=== PATIENT | female | born 1950 ===

== ENCOUNTER 2018-04-24 11:02 | Emergency (ER) | payer OTHER ==
[2018-04-24 11:16] VITALS: BMI 34.5
--- NOTE | 2018-04-24 11:21 | C.PDOC ---
History Of Present Illness 68 year old female, whose past medical history includes chronic knee pain and chronic varicose veins, presents to the ED for evaluation of pain behind her left knee, to the popliteal fossa. Patient states she undergone an operation to her right knee and is pending the same for her left knee. She reports pain and tightness to her calf, around where she has varicose veins, and burning sensation to her feet. She has followed up with her doctor and takes pain medication. She denies fever, chills, nausea, and vomiting. Time Seen by Provider: 04/24/18 11:12 Chief Complaint (Nursing): Lower Extremity Problem/Injury History Per: Patient History/Exam Limitations: no limitations Onset/Duration Of Symptoms: Days Current Symptoms Are (Timing): Still Present Past Medical History Reviewed: Historical Data, Nursing Documentation, Vital Signs - Medical History PMH: No Chronic Diseases Surgical History: No Surg Hx Family History: States: Unknown Family Hx Review Of Systems Constitutional: Negative for: Fever, Chills Gastrointestinal: Negative for: Nausea, Vomiting Musculoskeletal: Positive for: Other (left knee pain ) Physical Exam - Physical Exam Appears: Non-toxic, No Acute Distress Skin: Normal Color, Warm, Dry Head: Atraumatic, Normacephalic Eye(s): bilateral: Normal Inspection Oral Mucosa: Moist Neck: Supple Chest: Symmetrical, No Deformity, No Tenderness Cardiovascular: Rhythm Regular, No Murmur Respiratory: Normal Breath Sounds, No Rales, No Rhonchi, No Wheezing Gastrointestinal/Abdominal: Soft, No Tenderness, No Guarding, No Rebound, Other (obese) Extremity: Tenderness (mild, to varicose veins and popliteal fossa of left knee ), Capillary Refill (less than 2 seconds ), No Other (laxity, ecchymosis, swelling or bleeding to left knee ) Neurological/Psych: Oriented x3, Normal Speech, Normal Cognition, Normal Motor, Normal Sensation Gait: Steady ED Course And Treatment O2 Sat by Pulse Oximetry: 98 (on RA) Pulse Ox Interpretation: Normal Medical Decision Making Medical Decision Making: Progress: On reassessment, patient is resting comfortably, showing no signs of distress and is stable for discharge. Patient is recommended to use compression stockings and to follow up with her PMD within 1-2 days for further evaluation. Disposition Discussed With Dr.: buckley Counseled Patient/Family Regarding: Diagnosis, Need For Followup, Rx Given - Disposition Referrals: Priscilla Calero MD [Staff Provider] - Disposition: HOME/ ROUTINE Disposition Time: 11:32 Condition: STABLE Prescriptions: Compr.stocking,Thigh,Reg,Large [Compression Thigh Stocking] 1 each MC DAILY #2 each Instructions: Varicose Veins (DC) Forms: [employer] (Wolof) - POA Present On Arrival: None - Clinical Impression Clinical Impression: Varicose vein of leg - Scribe Statement The provider has reviewed the documentation as recorded by the Scribe (Pauline Espinal) Provider Attestation: All medical record entries made by the Scribe were at my direction and personally dictated by me. I have reviewed the chart and agree that the record accurately reflects my personal performance of the history, physical exam, medical decision making, and the department course for this patient. I have also personally directed, reviewed, and agree with the discharge instructions and disposition.
[2018-04-24 11:32] VITALS: BP 132/85; PULSE 79; RESP 18; TEMP 98.5; O2SAT 98
== END 2018-04-24 11:39 | disposition home or self-care (01) ==
LOC: C.ER 11:02
DX: I83.92 Asymptomatic varicose veins of left lower extremity (principal)

== ENCOUNTER 2018-05-17 13:24 | Emergency (ER) | payer OTHER ==
[2018-05-17 13:24] VITALS: BMI 34.5
[2018-05-17 13:56] VITALS: BP 130/82; PULSE 74; RESP 18; TEMP 99; O2SAT 97
--- NOTE | 2018-05-17 14:08 | C.PDOC ---
History Of Present Illness 68 y/o female comes in to ED complaining of runny nose, chills, and productive cough for the past 2-3 days. Patient denies SOB, chest pain, abdominal pain, nausea, vomiting, diarrhea, or dysuria. Patient registered to be seen because her family member is already in the ER for another complaint. Time Seen by Provider: 05/17/18 13:39 Chief Complaint (Nursing): Cough, Cold, Congestion History Per: Patient History/Exam Limitations: no limitations Onset/Duration Of Symptoms: Days Current Symptoms Are (Timing): Still Present Past Medical History Reviewed: Historical Data, Nursing Documentation, Vital Signs Vital Signs: Last Vital Signs Temp 99 F 05/17/18 13:53 Pulse 74 05/17/18 13:53 Resp 18 05/17/18 13:53 BP 130/82 05/17/18 13:53 Pulse Ox 97 05/17/18 13:53 - Medical History PMH: HTN, Hypercholesterolemia Surgical History: Cholecystectomy Family History: States: No Known Family Hx - Social History Hx Alcohol Use: No Hx Substance Use: No - Immunization History Hx Tetanus Toxoid Vaccination: No Hx Influenza Vaccination: Yes Hx Pneumococcal Vaccination: Yes Review Of Systems Constitutional: Positive for: Chills ENT: Positive for: Other (runny nose) Cardiovascular: Negative for: Chest Pain Respiratory: Positive for: Cough (productive cough). Negative for: Shortness of Breath Gastrointestinal: Negative for: Nausea, Vomiting, Abdominal Pain, Diarrhea Genitourinary: Negative for: Dysuria Physical Exam - Physical Exam Appears: Non-toxic, No Acute Distress, Other (speaking full sentences, coughing occasionally) Skin: Warm, Dry Head: Atraumatic, Normacephalic Eye(s): bilateral: Normal Inspection Nose: Normal Oral Mucosa: Moist Throat: Normal, No Erythema, No Exudate Neck: Supple Cardiovascular: Rhythm Regular, No Murmur Respiratory: Normal Breath Sounds, No Rales, No Rhonchi, No Wheezing Extremity: Bilateral: Atraumatic, Normal Color And Temperature, Normal ROM Neurological/Psych: Oriented x3, Normal Speech ED Course And Treatment O2 Sat by Pulse Oximetry: 97 (RA) Pulse Ox Interpretation: Normal Progress Note: Patient will be discharged home with motrin and tessalon. Patient is to follow up with PMD in 1-2 days. Disposition Counseled Patient/Family Regarding: Studies Performed, Diagnosis, Need For Followup, Rx Given - Disposition Referrals: Leticia Murray MD [Staff Provider] - Disposition: HOME/ ROUTINE Disposition Time: 14:10 Condition: STABLE Additional Instructions: FOLLOW UP WITH YOUR DOCTOR/CLINIC N 1-2 DAYS USE MEDICATIONS DIRECTED/NEEDED DRINK PLENTY OF FLUIDS RETURN TO EMERGENCY ROOM IF SYMPTOMS BECOME WORSE SEGUIR CON GRIER MDICO / CLNICA 1-2 HERRERA UTILICE MEDICAMENTOS SEGN DIRIGIDO / NECESARIO BEBER MUCHO LQUIDO VUELVA A LA NEPTALI DE EMERGENCIA SI LOS SNTOMAS SE HACEN PEOR Prescriptions: Benzonatate [Tessalon Perles] 100 mg PO BID PRN #15 sgl PRN Reason: Cough Ibuprofen [Motrin Tab] 600 mg PO Q6 PRN #30 tab PRN Reason: fever/pain Oxymetazoline 0.05% [Afrin 0.05%] 1 spr NS Q12H PRN #1 bottle PRN Reason: Nasal Congestion Phenol/Glycerin [Chloraseptic Max [place]] 1 spray MM Q6 PRN #1 spray PRN Reason: THROAT PAIN Instructions: Viral Upper Respiratory Infection, Adult (DC) Forms: [employer] (Greek) Print Language: LUXEMBOURGER - Clinical Impression Clinical Impression: Upper respiratory infection, Viral disease - Scribe Statement The provider has reviewed the documentation as recorded by the Mckenzie Hull Provider Attestation: All medical record entries made by the Franciscaiblinda were at my direction and personally dictated by me. I have reviewed the chart and agree that the record accurately reflects my personal performance of the history, physical exam, medical decision making, and the department course for this patient. I have also personally directed, reviewed, and agree with the discharge instructions and disposition.
== END 2018-05-17 14:20 | disposition home or self-care (01) ==
LOC: C.ER 13:24
DX: J06.9 Acute upper respiratory infection, unspecified (principal); I10 Essential (primary) hypertension; E78.00 Pure hypercholesterolemia, unspecified